=== PATIENT | male | born 1995 | race Caucasian/White ===

== ENCOUNTER 2022-07-09 13:26 | Emergency (ER) | payer OTHER, SELFPAY ==
[2022-07-09 13:44] VITALS: BP 134/50; PULSE 63; RESP 16; TEMP 36.7; O2SAT 95; BMI 4741.3
--- NOTE | 2022-07-09 14:04 | ED_ITS ---
HPI - Animal Bite General: Chief Complaint: Animal Bite Stated Complaint: dog bite Time Seen by Provider: 07/09/22 13:48 History of Present Illness: Patient is a 27-year-old male who comes to the ED after dog bite. 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 Treating Plant Supervisor was not home at the time so he is unable to obtain any shot information on dog. Patient is not up-to-date on his tetanus. Associated symptoms: Deny chills, fever(s) or headache(s) Review of Systems Const: Denies: fever(s), chills or fatigue Eyes: Denies: change in vision or eye discomfort ENMT: Denies: throat pain, odynophagia, nasal discharge or nasal congestion Card: Denies: chest pain, palpitations, edema, swelling of feet/ankles, dyspnea on exertion or orthopnea Resp: Denies: dyspnea, productive cough or non-productive cough GI: Denies: abdominal pain, nausea, vomiting, diarrhea, constipation or hematochezia : Denies: flank pain, difficulty urinating, dysuria or hematuria Musc: Denies: neck pain, back pain or extremity swelling Skin/Breast: Reports: new lesions (Dog bite on right and left calf); Denies: rash Neuro: Denies: headache(s), numbness in extremities or weakness in extremities PFSH ED PFSH: Medical History History of transposition of great arteries Family History Mother Diabetes Physical Exam Const: COMMON NORMALS: no acute distress, patient oriented x3, healthy appearing and alert GENERAL APPEARANCE: cooperative and comfortable HENMT: COMMON NORMALS: normocephalic HEAD & SCALP: normocephalic MOUTH: Normal oral and palatal mucosa present THROAT: posterior oropharynx normal and uvula midline Neck/C-Spine: COMMON NORMALS: supple GENERAL: Yes normal visual inspection Resp: COMMON NORMALS: normal respiratory effort, No retractions, No use of accessory muscles and clear to auscultation bilaterally AUSCULTATION: clear to auscultation bilaterally Cardio: COMMON NORMALS: regular rate, regular rhythm, S1 normal heart sound present, S2 normal heart sound present, No gallops present (Cardio), No clicks present (Cardio), No murmurs present (Cardio) and Peripheral pulses 2+ throughout RATE: regular rate RHYTHM: regular rhythm HEART SOUNDS: S1 normal heart sound present and S2 normal heart sound present PERIPHERAL PULSES: Peripheral pulses 2+ throughout GI: COMMON NORMALS: Normal to inspection, nondistended, normoactive bowel so unds present, Soft to palpation, non-tender and no masses PALPATION: Yes Soft to palpation : COMMON NORMALS: Yes no CVA tenderness BLADDER/KIDNEY EXAM: Yes no CVA tenderness Back/Pelvis: COMMON NORMALS: no CVA tenderness Extremity: COMMON NORMALS: normal to inspection OTHER: Right and left posterior calf has small bite leg puncture wound to skin that appears superficial. No bleeding or purulent drainage seen. No erythema or warmth around dog bite wound. Neuro: COMMON NORMALS: patient oriented x3 SENSORIUM/ORIENTATION: Yes alert GAIT: Yes Normal gait present Skin: GENERAL SKIN EXAM: dry skin Course Vital Signs: Vital signs: Vital Signs Temperature 98.1 F 07/09/22 13:44 Pulse Rate 63 07/09/22 13:44 Respiratory Rate 16 07/09/22 13:44 Blood Pressure 134/50 07/09/22 13:44 Pulse Oximetry 95 07/09/22 13:44 Oxygen Delivery Me thod 07/09/22 13:44 MDM - Animal Bite Medical Decision Making Patient is a 27-year-old male who comes to the ED after dog bite. 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 Treating Plant Supervisor was not home at the time so he is unable to obtain any shot information on dog. Patient is not up-to-date on his tetanus. Vitals are stable. Exam shows small puncture wound to left posterior calf and right posterior calf. Rest of exam is benign. Patient was given updated tetanus shot here in the ED. I discussed with the patient the options of getting rabies prophylaxis today or talking with salesman/owner of dog to find out dog's vaccination history. Patient decided to follow-up with dog salesman/owner within the next 24 hours to find out dog vaccination records. If unable to find out dog vaccination records or if dog has not been vaccinated he was instructed to return to the ED as soon as possible to start rabies prophylaxis vaccination series. Nurse irrigated and cleaned dog bite wound and bandaged it. He was discharged home with a prescription for Augmentin. Discharge Plan Discharge Patient Disposition: Home Clinical Impression: Dog bite Qualifiers: Encounter type: initial encounter Qualified Code(s): W54.0XXA - Bitten by dog, initial encounter Condition: Stable Prescriptions: New amoxicillin-pot clavulanate 500-125 mg tablet 1 tab PO BID 7 Days Qty: 14 0RF No Action sumatriptan succinate [Imitrex] 25 mg tablet 25 mg PO .HS riboflavin (vitamin B2) PO Discharge Orders: Discharge ED (Routine); Ordered 07/09/22 Ordered By: Jose Ferrer Referrals: Lazaro Plasencia FNP [Primary Care Provider] - Discharge Diet: Regular Discharge Activity: Increase activity as tolerated Patient Instructions: Animal Bite (ED) Activity Restrictions/Additional Instructions: Follow-up with dog salesman/owner within the next 24 hours to find out dog vaccination records. If unable to find out dog vaccination records or if dog has not been vaccinated for rabies return to the ED as soon as possible to start rabies prophylaxis vaccination series. Keep dog bite wound clean daily with soap and water then apply some triple antibiotic ointment on it and cover with bandage. Take medications as prescribed. Return to the ER or your medical provider if condition worsens. Please read and understand discharge instructions. Thank you for choosing [facility] for your healthcare needs today. Please realize this is an emergency room and that we are providing you with a medical screening exam and this may not be complete and all inclusive of all the testing and or work up that you may need to determine your ailment or severity of your illness. It is very important that you follow up as instructed or that you return to the Emergency Department should you have concerns or if your condition changes or worsens in any way. Coding Level of Care Code ED Mill Crane Operator for Carolina Maya Exam Comprehensive
[2022-07-09] MEDS: neomycin-poly-bacitracin oint 28 gm 1 APPLIC TOPICAL (14:17)
[2022-07-09] MEDS: tetanus-dipt-pertussis 0.5 mL SDV IM (14:17)
== END 2022-07-09 14:27 | disposition home or self-care (01) ==
PROVIDERS: Emergency Provider Physician Assistant; PCP Nurse Practitioner Family
DX: S81.852A Open bite, left lower leg, initial encounter (principal); S81.851A Open bite, right lower leg, initial encounter; W54.0XXA Bitten by dog, initial encounter; Y99.0 Civilian activity done for income or pay; Z23 Encounter for immunization
CPT/HCPCS: 90471; 90715; 99283

== ENCOUNTER 2024-07-14 09:23 | Emergency (ER) | payer OTHER, SELFPAY ==
[2024-07-14 09:32] VITALS: BP 148/75; PULSE 70; RESP 18; TEMP 36.7; O2SAT 98; BMI 32.1
[2024-07-14] MEDS: dexamethasone 10 mg/mL INJ IM (09:55)
[2024-07-14] MEDS: orphenadrine 30 mg/mL Inj 2 mL 60 MG IM (09:57)
--- NOTE | 2024-07-14 10:18 | XR_ITS ---
WS: [id number] XR lumbar spine 2-3V* [id number] REASON FOR EXAM: back pain FINDINGS: Presumed ventriculoperitoneal shunt tubing overlying the mid, right lower, and mid lower abdomen. Relatively normal lumbar spine curvatures. No significant vertebral body abnormality. Intervertebral disc spaces are intact and relatively well preserved. No spondylolysis. No spondylolisthesis. XR/XR lumbar spine 2-3V* [id number] IMPRESSION: No significant abnormality.
[2024-07-14] MEDS: ketorolac 30 mg/mL INJ IVP (10:25)
--- NOTE | 2024-07-14 10:27 | W.ED.BACK ---
HPI - Back Pain/Injury General: Chief Complaint: Back Pain/Injury Stated Complaint: mid-lower back pain Time Seen by Provider: 07/14/24 09:36 Source: patient Mode of arrival: ambulatory Limitations: no limitations History of Present Illness: 21-year-old male states he is at work yesterday states that he had bent over stood up picking something up and started having low back pain. He states he has a sharp pain in his lower back it is much worse with movement. He states it feels like it is on his right side more than the left he denies any bowel or bladder incontinence rates the pain a 7 out of 10 denies any radiation down his leg Associated symptoms: Deny abdominal pain, chills, fever(s), nausea or vomiting Related Data Home Medications Medication Instructions Recorded Confirmed riboflavin (vitamin B2) 50 mg 50 mg PO DAILY 10/29/23 07/14/24 tablet atogepant 60 mg tablet (Qulipta) 60 mg PO DAILY 04/15/24 07/14/24 prochlorperazine maleate 10 mg 10 mg PO DAILY 07/14/24 07/14/24 tablet sumatriptan succinate 100 mg tablet 100 mg PO DAILY PRN Migraine 07/14/24 07/14/24 Headache topiramate 100 mg tablet 100 mg PO BID 07/14/24 07/14/24 Previous Rx's Medication Instructions Recorded methocarbamol 750 mg tablet 750 mg PO Q6H PRN spasms #20 tabs 07/14/24 naproxen 500 mg tablet (Naprosyn) 500 mg PO BID PRN pain #20 tabs 07/14/24 Allergies Allergy/AdvReac Type Severity Reaction Status Date / Time No Known Allergies Allergy Verified 04/15/24 11:25 Review of Systems Const: Denies: fever(s), chills, body aches or change in appetite ENMT: Denies: throat pain or dental pain Card: Denies: chest pain Resp: Denies: dyspnea GI: Denies: abdominal pain, nausea, vomiting or diarrhea Musc: Reports: back pain; Denies: neck pain Skin/Breast: Denies: rash Neuro: Denies: headache(s) PFSH ED PFSH: Medical History History of transposition of great arteries Family History Mother Diabetes Social History Smoking and tobacco/nicotine status: unknown if used tobacco/nicotine Physical Exam Const: COMMON NORMALS: no acute distress, patient oriented x3 and healthy appearing HENMT: COMMON NORMALS: normocephalic and atraumatic HEAD & SCALP: normocephalic and atraumatic Eye: COMMON NORMALS: conjunctivae normal CONJUNCTIVA: Yes conjunctivae normal Neck/C-Spine: COMMON NORMALS: full ROM and supple Chest: COMMONS NORMALS: normal inspection of the chest Resp: COMMON NORMALS: normal respiratory effort, No retractions, No use of accessory muscles and clear to auscultation bilaterally AUSCULTATION: clear to auscultation bilaterally Cardio: COMMON NORMALS: regular rate, regular rhythm and No murmurs present (Cardio) RATE: regular rate RHYTHM: regular rhythm Back/Pelvis: OTHER: Paraspinal tenderness more so on the right no midline tenderness no saddle anesthesia Extremity: COMMON NORMALS: normal to inspection and full ROM Neuro: COMMON NORMALS: patient oriented x3, moves all extremities and no focal motor deficits Psych: COMMON NORMALS: mental status grossly normal, Normal thought process present and cooperative THOUGHT PROCESS: Normal thought process present Skin: COMMON NORMALS: no rashes or lesions noted and no wounds GENERAL SKIN EXAM: no rashes or lesions noted Course Vital Signs: Vital signs: Vital Signs Temperature 98.1 F 07/14/24 09:32 Pulse Rate 70 07/14/24 09:32 Respiratory Rate 18 07/14/24 09:32 Blood Pressure 148/75 07/14/24 09:32 Pulse Oximetry 98 07/14/24 09:32 Oxygen Delivery Me thod Room Air 07/14/24 09:32 MDM - Back Pain/Injury Medical Decision Making Patient presents with low back pain is likely lumbar strain he has no signs of cord compression no signs of epidural abscess we will start him on anti-inflammatories muscle accident he is to ice follow-up with PCP return if worsening. Medical Records I reviewed the patient's medical records. XR interpretation done by ED provider, pending radiology final review ED provider radiology interpretation(s): X-ray lumbar spine no acute fractures or abnormalities Discharge Plan Discharge Patient Disposition: Home Clinical Impression: Lumbar strain Condition: Stable Prescriptions: New methocarbamol 750 mg tablet 750 mg PO Q6H PRN (Reason: spasms) Qty: 20 0RF naproxen [Naprosyn] 500 mg tablet 500 mg PO BID PRN (Reason: pain) Qty: 20 0RF No Action riboflavin (vitamin B2) 50 mg tablet 50 mg PO DAILY Qulipta 60 mg tablet 60 mg PO DAILY sumatriptan succinate 100 mg tablet 100 mg PO DAILY PRN (Reason: Migraine Headache) prochlorperazine maleate 10 mg tablet 10 mg PO DAILY topiramate 100 mg tablet 100 mg PO BID Discharge Orders: Discharge ED (Routine); Ordered 07/14/24 Ordered By: Polo Wu Referrals: Marty Carr MD [Primary Care Provider] - 4-7 days Discharge Diet: Advance as tolerated Discharge Activity: Resume usual activity Patient Instructions: Acute Low Back Pain (ED) Coding Level of Care Code ED Associate Professor Of Criminal Justice for aCrolina Maya
[2024-07-14 11:10] VITALS: BP 134/74; PULSE 71; O2SAT 98
== END 2024-07-14 11:10 | disposition home or self-care (01) ==
PROVIDERS: Emergency Provider Emergency Medicine; PCP Family Medicine
DX: S39.012A Strain of muscle, fascia and tendon of lower back, initial encounter (principal); X58.XXXA Exposure to other specified factors, initial encounter
CPT/HCPCS: 72100; 96372; 96374; 99284; J1100; J1885; J2360

== ENCOUNTER → 2024-09-15 10:30 | Outpatient (BNVA) | payer OTHER, SELFPAY | PROVIDERS: PCP Family Medicine; Visit Provider Family Medicine | DX: Z13.6 Encounter for screening for cardiovascular disorders (principal) | CPT/HCPCS: 80053; 80061; 84439; 84443; 85025 ==